=== PATIENT | male | born 1965 | race Caucasian/White ===

== ENCOUNTER 2016-05-18 12:06 | Emergency (ER) | payer BC, OTHER ==
--- NOTE | 2016-05-18 14:40 | REP ---
CT Head without contrast HISTORY: Trauma COMPARISON: 06/23/2014 There is no intraparenchymal hemorrhage, acute infarct, mass or midline shift. The ventricular system is normal in appearance. There is no extra cerebral collection. There is no fracture. The visualized sinuses are clear. IMPRESSION: There is no intracranial lesion. Signed by Pedro Villalta MD 05/18/2016 02:31 P
--- NOTE | 2016-05-18 15:32 | EDDOCDS ---
Nurse's Notes [facility] Name: Jose Price Age: 50 yrs Sex: Male : 1965 Arrival Date: 05/18/2016 Time: 12:06 Bed PR2 / Private MD: Nima Ruiz D; Abraham Hopson Diagnosis: Diplopia-due to trauma Presentation: 05/18 12:19 Presenting complaint: Patient states: hit head twice yesterday. pt denies LOC. Pt c/o dsf double vision. pt denies pain. Adult Sepsis Screening: The patient does not have new or worsening altered mentation. Patient's respiratory rate is less than 22. Systolic blood pressure is greater than 100. Patient has a qSOFA score of 0- Negative Sepsis Screen. Suicide/Homicide risk assessment- the patient denies having any suicidal and/or homicidal ideations and does not present with any other emotional, behavioral or mental health complaints. 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 Transition of care: patient was not received from another setting of care. 12:19 Acuity: WEI Level 4 dsf 12:19 Method Of Arrival: Walkin/Carried/Asstd dsf Triage Assessment: 12:22 General: Appears in no apparent distress, Behavior is appropriate for age, cooperative. dsf Pain: Denies pain. Pt Declines HIV testing. EENT: Reports double vision . Cardiovascular: No deficits noted. Respiratory: No deficits noted. Derm: Skin is pink. Historical: - Allergies: no known allergies; - Home Meds: 1. metoprolol tartrate 25 mg Oral tab 1 tab once daily (Last dose: 05/17/2016) 2. atorvastatin 10 mg oral tab 1 tab once daily (Last dose: 05/17/2016) 3. Aleve 220 mg Oral tab 2 tab as needed (Last dose: 05/18/2016 05:00) - PMHx: Hypertension; Hypercholesterolemia; - PSHx: Appendectomy; - Social history: Smoking status: Patient states was never smoker of tobacco. No barriers to communication noted, The patient speaks fluent Malay, Speaks appropriately for age. - Family history: Not pertinent. - : The pt / caregiver states he / she is not on anticoagulants. Home medication list is obtained from the patient. - Exposure Risk Screening:: None identified. Screenin:30 Screening information is obtained from the patient. Fall risk: No risks identified. kr3 Assistance ADL's: requires no assistance with activities of daily living. Abuse/DV Screen: The patient / caregiver reports he/she is: not in a situation that causes fear, pain or injury. Nutritional screening: No deficits noted. Advance Directives: Currently, there is no health care proxy. home support is adequate. Assessment: 13:39 Adult Sepsis Screening: The patient does not have new or worsening altered mentation. dsf Patient's respiratory rate is less than 22. Systolic blood pressure is greater than 100. Patient has a qSOFA score of 0- Negative Sepsis Screen. General: Appears in no apparent distress, Behavior is appropriate for age, cooperative. Pain: Denies pain. Neurological: Level of Consciousness is awake, alert. EENT: Reports double vision . Cardiovascular: Capillary refill < 3 seconds. Respiratory: Airway is patent Respiratory effort is even, unlabored, Respiratory pattern is regular, symmetrical. Derm: Skin is pink, warm & dry. 15:31 Reassessment: Patient appears in no apparent distress at this time. Pain: Location: kr3 right knee Pain currently is 3 out of 10 on a pain scale. Respiratory: Respiratory effort is even, unlabored. Derm: Skin is pink, warm & dry. Vital Signs: 12:08 BP 158 / 107 RA Supine (auto/reg); Pulse 78; Resp 18 S; Temp 96.0(O); Pulse Ox 98% on gr2 R/A; Weight 95.25 kg (R); Height 5 ft. 10 in. (177.80 cm) (R); Pain 2/10; 14:08 BP 166 / 101; Pulse 64; Resp 18; Temp 97.9(TE); Pulse Ox 99% ; Pain 2/10; rn1 15:30 BP 148 / 100 LA (man/); Pulse 82; Resp 16; Pulse Ox 96% on R/A; Pain 3/10; kr3 12:08 Body Mass Index 30.13 (95.25 kg, 177.80 cm) gr2 Vitals: 12:22 Log In Time: May 18, 2016 at 12:06. [facility] ED Course: 12:08 Patient visited by John Renee. dem1 12:08 Abraham Hopson MD is Private Physician. dem1 12:08 Patient moved to Waiting dem1 12:11 Patient moved to Pre RCE dem1 12:13 Nima Ruiz is Private Physician. gr2 12:15 Patient visited by Stormy Roper. gr2 12:20 Triage Initiated dsf 13:39 Patient moved to Triage 3 dsf 14:06 Owen Lee PA-C is PHCP. cc10 14:06 Oriana Lay MD is Attending Physician. cc10 14:08 Patient visited by Owen Lee PA-C. cc10 14:08 Patient visited by Owen Lee PA-C. cc10 14:17 Patient moved to TR1 dsf 14:19 Patient visited by Paradise Weiner,RN. dsf 14:50 CT Head Without Contrast Returned. EDMS 15:11 Patient moved to PR kr3 15:16 Patient visited by Sima Huynh,NOHELIA. kr3 15:24 Abraham Hopson MD is Referral Physician. cc10 15:31 The patient / caregiver is instructed regarding the plan of care and ED course. Patient kr3 has correct armband on for positive identification. 15:31 No IV's were initiated during this patient's visit. No procedures done that require kr3 assistance. Order Results: Radiology Order: CT Head Without Contrast Test: CT Head Without Contrast REASON FOR EXAMINATION: Trauma; CT Head without contrast; ; HISTORY: Trauma; ; COMPARISON: 06/23/2014; ; There is no intraparenchymal hemorrhage, acute infarct, mass or midline shift.; The ventricular system is normal in appearance. There is no extra cerebral; collection. There is no fracture. The visualized sinuses are clear.; ; IMPRESSION: There is no intracranial lesion.; ; ; ; ; Signed by; Pedro Villalta MD 05/18/2016 02:31 P; Outcome: 15:24 Discharge ordered by Provider. cc10 15:31 Discharge Assessment: patient administered narcotics - no. The following High Risk kr3 Discharge criteria are identified: None. Discharged to home ambulatory. Condition: stable. Discharge instructions given to patient, Instructed on discharge instructions, follow up and referral plans. Demonstrated understanding of instructions, Pt was receptive of discharge instructions/ teaching. CT Study completed. Property sent home with patient. 15:32 Patient left the ED. kr3 Signatures: Dispatcher [employer] EDMS LinoSima,NOHELIA RN kr3 Paradise Weiner RN RN dsf John Renee dem1 Stormy Roper gr2 Owen Lee PA-C PAMartín cc10 Shade Kong rn1 Corrections: (The following items were deleted from the chart) 12:15 12:08 BP 210 / 115 Supine Auto R Arm Regular; Pulse 93bpm; Resp 18bpm; Pulse Ox 99% RA; gr2 Temp 98.5F; 90.72 kg; Height 5 ft. 8 in.; BMI: 30.4; Pain 9/10; dem1 12:16 12:08 Log In Time: May 18, 2016 at 12:06 dem1 dem1 12:16 12:08 BP 202 / 106 Sitting Auto R Arm Large; dem1 dem1 MTDD
--- NOTE | 2016-05-18 15:32 | EDDOCDS ---
Physician Documentation [facility] Name: Jose Price Age: 50 yrs Sex: Male : 1965 Arrival Date: 05/18/2016 Time: 12:06 Bed PR Private MD: Nima Ruiz D; Abraham Hopson Disposition: 05/18/16 15:24 Discharged to Home/Self Care. Impression: Diplopia - due to trauma. - Condition is Stable. - Discharge Instructions: Diplopia. - Medication Reconciliation form. - Follow up: Emergency Department; When: As needed; Reason: Worsening of conditions. Follow up: Abraham Hopson MD; When: Call to arrange an appointment; Reason: Wound/Symptom Recheck, Recheck today's complaints, Continuance of care. - Problem is new. - Symptoms are unchanged. Historical: - Allergies: no known allergies; - Home Meds: 1. metoprolol tartrate 25 mg Oral tab 1 tab once daily (Last dose: 05/17/2016) 2. atorvastatin 10 mg oral tab 1 tab once daily (Last dose: 05/17/2016) 3. Aleve 220 mg Oral tab 2 tab as needed (Last dose: 05/18/2016 05:00) - PMHx: Hypertension; Hypercholesterolemia; - PSHx: Appendectomy; - Social history: Smoking status: Patient states was never smoker of tobacco. No barriers to communication noted, The patient speaks fluent Tunisian, Speaks appropriately for age. - Family history: Not pertinent. - : The pt / caregiver states he / she is not on anticoagulants. Home medication list is obtained from the patient. - Exposure Risk Screening:: None identified. Vital Signs: 05/18 12:08 BP 158 / 107 RA Supine (auto/reg); Pulse 78; Resp 18 S; Temp 96.0(O); Pulse Ox 98% on gr2 R/A; Weight 95.25 kg / 209.99 lbs (R); Height 5 ft. 10 in. (177.80 cm) (R); Pain 2/10; 14:08 BP 166 / 101; Pulse 64; Resp 18; Temp 97.9(TE); Pulse Ox 99% ; Pain 2/10; rn1 15:30 BP 148 / 100 LA (man/); Pulse 82; Resp 16; Pulse Ox 96% on R/A; Pain 3/10; kr3 12:08 Body Mass Index 30.13 (95.25 kg, 177.80 cm) gr2 MDM: 14:18 CT Head Without Contrast Ordered. EDMS Signatures: Dispatcher [employer] EDMS Sima Huynh,RN RN kr3 Paradise WeinerRN RN gerardf Owen Lee, PAMartín PAGregoryC cc10 MTDD
--- NOTE | 2016-05-20 16:33 | EDDOCDS ---
Physician Documentation [facility] Name: Jose Price Age: 50 yrs Sex: Male : 1965 Arrival Date: 05/18/2016 Time: 12:06 Bed PR Private MD: Nima Ruiz D; Abraham Hopson Disposition: 05/18/16 15:24 Discharged to Home/Self Care. Impression: Diplopia - due to trauma. - Condition is Stable. - Discharge Instructions: Diplopia. - Medication Reconciliation form. - Follow up: Emergency Department; When: As needed; Reason: Worsening of conditions. Follow up: Abraham Hopson MD; When: Call to arrange an appointment; Reason: Wound/Symptom Recheck, Recheck today's complaints, Continuance of care. - Problem is new. - Symptoms are unchanged. Historical: - Allergies: no known allergies; - Home Meds: 1. metoprolol tartrate 25 mg Oral tab 1 tab once daily (Last dose: 05/17/2016) 2. atorvastatin 10 mg oral tab 1 tab once daily (Last dose: 05/17/2016) 3. Aleve 220 mg Oral tab 2 tab as needed (Last dose: 05/18/2016 05:00) - PMHx: Hypertension; Hypercholesterolemia; - PSHx: Appendectomy; - Social history: Smoking status: Patient states was never smoker of tobacco. No barriers to communication noted, The patient speaks fluent South Sudanese, Speaks appropriately for age. - Family history: Not pertinent. - : The pt / caregiver states he / she is not on anticoagulants. Home medication list is obtained from the patient. - Exposure Risk Screening:: None identified. Vital Signs: 05/18 12:08 BP 158 / 107 RA Supine (auto/reg); Pulse 78; Resp 18 S; Temp 96.0(O); Pulse Ox 98% on gr2 R/A; Weight 95.25 kg / 209.99 lbs (R); Height 5 ft. 10 in. (177.80 cm) (R); Pain 2/10; 14:08 BP 166 / 101; Pulse 64; Resp 18; Temp 97.9(TE); Pulse Ox 99% ; Pain 2/10; rn1 15:30 BP 148 / 100 LA (man/); Pulse 82; Resp 16; Pulse Ox 96% on R/A; Pain 3/10; kr3 12:08 Body Mass Index 30.13 (95.25 kg, 177.80 cm) gr2 MDM: 14:18 CT Head Without Contrast Ordered. EDMS 16:08 [facility] Payment Agreement was scanned into [employer] and attached to record. jp5 16:08 Financial registration complete. jp5 05/19 06:52 T-Sheet-- Draft Copy was scanned into [employer] and attached to record. gb Signatures: Dispatcher [employer] EDMS Mely Diaz, Reg Reg gb Sima Huynh,RN RN kr3 Paradise Weiner,RN RN gerardf Owen Lee, PA-C PA-C cc10 Charu Trinh jp5 The chart was reviewed and I authenticate all verbal orders and agree with the evaluation and treatment provided.Attachments: 05/18 16:08 [facility] Payment Agreement jp5 05/19 06:52 T-Sheet-- Draft Copy gb Chart Complete MTDD
--- NOTE | 2016-05-20 16:33 | EDDOCDS ---
Nurse's Notes [facility] Name: Jose Price Age: 50 yrs Sex: Male : 1965 Arrival Date: 05/18/2016 Time: 12:06 Bed PR2 / Private MD: Nima Ruiz D; Abraham Hopson Diagnosis: Diplopia-due to trauma Presentation: 05/18 12:19 Presenting complaint: Patient states: hit head twice yesterday. pt denies LOC. Pt c/o dsf double vision. pt denies pain. Adult Sepsis Screening: The patient does not have new or worsening altered mentation. Patient's respiratory rate is less than 22. Systolic blood pressure is greater than 100. Patient has a qSOFA score of 0- Negative Sepsis Screen. Suicide/Homicide risk assessment- the patient denies having any suicidal and/or homicidal ideations and does not present with any other emotional, behavioral or mental health complaints. 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 Transition of care: patient was not received from another setting of care. 12:19 Acuity: WEI Level 4 dsf 12:19 Method Of Arrival: Walkin/Carried/Asstd dsf Triage Assessment: 12:22 General: Appears in no apparent distress, Behavior is appropriate for age, cooperative. dsf Pain: Denies pain. Pt Declines HIV testing. EENT: Reports double vision . Cardiovascular: No deficits noted. Respiratory: No deficits noted. Derm: Skin is pink. Historical: - Allergies: no known allergies; - Home Meds: 1. metoprolol tartrate 25 mg Oral tab 1 tab once daily (Last dose: 05/17/2016) 2. atorvastatin 10 mg oral tab 1 tab once daily (Last dose: 05/17/2016) 3. Aleve 220 mg Oral tab 2 tab as needed (Last dose: 05/18/2016 05:00) - PMHx: Hypertension; Hypercholesterolemia; - PSHx: Appendectomy; - Social history: Smoking status: Patient states was never smoker of tobacco. No barriers to communication noted, The patient speaks fluent Occitan, Speaks appropriately for age. - Family history: Not pertinent. - : The pt / caregiver states he / she is not on anticoagulants. Home medication list is obtained from the patient. - Exposure Risk Screening:: None identified. Screenin:30 Screening information is obtained from the patient. Fall risk: No risks identified. kr3 Assistance ADL's: requires no assistance with activities of daily living. Abuse/DV Screen: The patient / caregiver reports he/she is: not in a situation that causes fear, pain or injury. Nutritional screening: No deficits noted. Advance Directives: Currently, there is no health care proxy. home support is adequate. Assessment: 13:39 Adult Sepsis Screening: The patient does not have new or worsening altered mentation. dsf Patient's respiratory rate is less than 22. Systolic blood pressure is greater than 100. Patient has a qSOFA score of 0- Negative Sepsis Screen. General: Appears in no apparent distress, Behavior is appropriate for age, cooperative. Pain: Denies pain. Neurological: Level of Consciousness is awake, alert. EENT: Reports double vision . Cardiovascular: Capillary refill < 3 seconds. Respiratory: Airway is patent Respiratory effort is even, unlabored, Respiratory pattern is regular, symmetrical. Derm: Skin is pink, warm & dry. 15:31 Reassessment: Patient appears in no apparent distress at this time. Pain: Location: kr3 right knee Pain currently is 3 out of 10 on a pain scale. Respiratory: Respiratory effort is even, unlabored. Derm: Skin is pink, warm & dry. Vital Signs: 12:08 BP 158 / 107 RA Supine (auto/reg); Pulse 78; Resp 18 S; Temp 96.0(O); Pulse Ox 98% on gr2 R/A; Weight 95.25 kg (R); Height 5 ft. 10 in. (177.80 cm) (R); Pain 2/10; 14:08 BP 166 / 101; Pulse 64; Resp 18; Temp 97.9(TE); Pulse Ox 99% ; Pain 2/10; rn1 15:30 BP 148 / 100 LA (man/); Pulse 82; Resp 16; Pulse Ox 96% on R/A; Pain 3/10; kr3 12:08 Body Mass Index 30.13 (95.25 kg, 177.80 cm) gr2 Vitals: 12:22 Log In Time: May 18, 2016 at 12:06. [facility] ED Course: 12:08 Patient visited by John Renee. dem1 12:08 Abraham Hopson MD is Private Physician. dem1 12:08 Patient moved to Waiting dem1 12:11 Patient moved to Pre RCE dem1 12:13 Nima Ruiz is Private Physician. gr2 12:15 Patient visited by Stormy Roper. gr2 12:20 Triage Initiated dsf 13:39 Patient moved to Triage 3 dsf 14:06 Owen Lee PA-C is PHCP. cc10 14:06 Oriana Lay MD is Attending Physician. cc10 14:08 Patient visited by Owen Lee PA-C. cc10 14:08 Patient visited by Owen Lee PA-C. cc10 14:17 Patient moved to TR1 dsf 14:19 Patient visited by Paradise Weiner,RN. dsf 14:50 CT Head Without Contrast Returned. EDMS 15:11 Patient moved to PR2 / 26 kr3 15:16 Patient visited by Sima Huynh,NOHELIA. kr3 15:24 Abraham Hopson MD is Referral Physician. cc10 15:31 The patient / caregiver is instructed regarding the plan of care and ED course. Patient kr3 has correct armband on for positive identification. 15:31 No IV's were initiated during this patient's visit. No procedures done that require kr3 assistance. 16:08 [facility] Payment Agreement was scanned into [employer] and attached to record. jp5 05/19 06:52 T-Sheet-- Draft Copy was scanned into [employer] and attached to record. gb Order Results: Radiology Order: CT Head Without Contrast Test: CT Head Without Contrast REASON FOR EXAMINATION: Trauma; CT Head without contrast; ; HISTORY: Trauma; ; COMPARISON: 06/23/2014; ; There is no intraparenchymal hemorrhage, acute infarct, mass or midline shift.; The ventricular system is normal in appearance. There is no extra cerebral; collection. There is no fracture. The visualized sinuses are clear.; ; IMPRESSION: There is no intracranial lesion.; ; ; ; ; Signed by; Pedro Villalta MD 05/18/2016 02:31 P; Outcome: 05/18 15:24 Discharge ordered by Provider. cc10 15:31 Discharge Assessment: patient administered narcotics - no. The following High Risk kr3 Discharge criteria are identified: None. Discharged to home ambulatory. Condition: stable. Discharge instructions given to patient, Instructed on discharge instructions, follow up and referral plans. Demonstrated understanding of instructions, Pt was receptive of discharge instructions/ teaching. CT Study completed. Property sent home with patient. 15:32 Patient left the ED. kr3 Signatures: Dispatcher [employer] EDMS Mely Diaz, Reg Reg Sima Aguero,RN RN kr3 Paradise WeinreRN RN f John Renee dem1 Stormy Roper gr2 Owen Lee PA-C PA-C cc10 Shade Kong rn1 Charu Trinh jp5 Corrections: (The following items were deleted from the chart) 12:15 12:08 BP 210 / 115 Supine Auto R Arm Regular; Pulse 93bpm; Resp 18bpm; Pulse Ox 99% RA; gr2 Temp 98.5F; 90.72 kg; Height 5 ft. 8 in.; BMI: 30.4; Pain 9/10; dem1 12:16 12:08 Log In Time: May 18, 2016 at 12:06 [facility] 12:16 12:08 BP 202 / 106 Sitting Auto R Arm Large; dem1 dem1 Chart Complete [facility]
--- NOTE | 2016-05-20 16:33 | EDDOCDS ---
Physician Documentation [facility] Name: Jose Price Age: 50 yrs Sex: Male : 1965 Arrival Date: 05/18/2016 Time: 12:06 Bed PR Private MD: Nima Ruiz D; Abraham Hopson Disposition: 05/18/16 15:24 Discharged to Home/Self Care. Impression: Diplopia - due to trauma. - Condition is Stable. - Discharge Instructions: Diplopia. - Medication Reconciliation form. - Follow up: Emergency Department; When: As needed; Reason: Worsening of conditions. Follow up: Abraham Hopson MD; When: Call to arrange an appointment; Reason: Wound/Symptom Recheck, Recheck today's complaints, Continuance of care. - Problem is new. - Symptoms are unchanged. Historical: - Allergies: no known allergies; - Home Meds: 1. metoprolol tartrate 25 mg Oral tab 1 tab once daily (Last dose: 05/17/2016) 2. atorvastatin 10 mg oral tab 1 tab once daily (Last dose: 05/17/2016) 3. Aleve 220 mg Oral tab 2 tab as needed (Last dose: 05/18/2016 05:00) - PMHx: Hypertension; Hypercholesterolemia; - PSHx: Appendectomy; - Social history: Smoking status: Patient states was never smoker of tobacco. No barriers to communication noted, The patient speaks fluent Israeli, Speaks appropriately for age. - Family history: Not pertinent. - : The pt / caregiver states he / she is not on anticoagulants. Home medication list is obtained from the patient. - Exposure Risk Screening:: None identified. Vital Signs: 05/18 12:08 BP 158 / 107 RA Supine (auto/reg); Pulse 78; Resp 18 S; Temp 96.0(O); Pulse Ox 98% on gr2 R/A; Weight 95.25 kg / 209.99 lbs (R); Height 5 ft. 10 in. (177.80 cm) (R); Pain 2/10; 14:08 BP 166 / 101; Pulse 64; Resp 18; Temp 97.9(TE); Pulse Ox 99% ; Pain 2/10; rn1 15:30 BP 148 / 100 LA (man/); Pulse 82; Resp 16; Pulse Ox 96% on R/A; Pain 3/10; kr3 12:08 Body Mass Index 30.13 (95.25 kg, 177.80 cm) gr2 MDM: 14:18 CT Head Without Contrast Ordered. EDMS 16:08 [facility] Payment Agreement was scanned into [employer] and attached to record. jp5 16:08 Financial registration complete. jp5 05/19 06:52 T-Sheet-- Draft Copy was scanned into [employer] and attached to record. gb Signatures: Dispatcher [employer] EDMS Mely Diaz, Reg Reg gb Sima Huynh,RN RN kr3 Paradise Weiner,RN RN gerardf Owen Lee, PA-C PA-C cc10 Charu Trinh jp5 The chart was reviewed and I authenticate all verbal orders and agree with the evaluation and treatment provided.Attachments: 05/18 16:08 [facility] Payment Agreement jp5 05/19 06:52 T-Sheet-- Draft Copy gb Chart Complete MTDD
== END 2016-05-18 15:32 | disposition home or self-care (01) ==
LOC: M ED 12:06
DX: H53.2 Diplopia (principal); I10 Essential (primary) hypertension; E03.9 Hypothyroidism, unspecified; Z90.89 Acquired absence of other organs; Z79.899 Other long term (current) drug therapy

== ENCOUNTER → 2017-03-23 | Outpatient (REF) | payer OTHER ==
[2017-03-23 11:48] LABS: ANION GAP 7 MEQ/L (8-16); BLOOD UREA NITROGEN 17 MG/DL (7-18); CALCIUM LEVEL 8.9 MG/DL (8.5-10.1); CARBON DIOXIDE LEVEL 31 MEQ/L (21-32); CHLORIDE LEVEL 105 MEQ/L (98-107); CHOLESTEROL LEVEL 243 MG/DL (<200); CREATININE FOR GFR 1.02 MG/DL (0.70-1.30); GLOMERULAR FILTRATION RATE > 60.0 (>60); GLUCOSE, FASTING 91 MG/DL (70-105); POTASSIUM SERUM 4.4 MEQ/L (3.5-5.1); SODIUM LEVEL 143 MEQ/L (136-145); TRIGLYCERIDES LEVEL 617 MG/DL (<150); URIC ACID 6.3 MG/DL (3.5-7.2)
== END ==
LOC: M SFHCCLAY 08:03
PROVIDERS: ATTEND Family Medicine
DX: I10 Essential (primary) hypertension (principal); I27.21 Secondary pulmonary arterial hypertension

== ENCOUNTER → 2018-04-18 | Outpatient (REF) | payer OTHER ==
[2018-04-18 12:06] LABS: ALT/SGPT 69 U/L (12-78); ANION GAP 6 MEQ/L (8-16); BLOOD UREA NITROGEN 15 MG/DL (7-18); CARBON DIOXIDE LEVEL 31 MEQ/L (21-32); CHLORIDE LEVEL 104 MEQ/L (98-107); CHOLESTEROL LEVEL 197 MG/DL (<200); CHOLESTEROL RISK RATIO 6.354 (<5); CREATININE FOR GFR 1.15 MG/DL (0.70-1.30); GLOMERULAR FILTRATION RATE > 60.0 (>56); GLUCOSE, FASTING 99 MG/DL (70-100); HDL CHOLESTEROL 31 MG/DL (>40); NON-HDL-C 166 MG/DL; POTASSIUM SERUM 4.4 MEQ/L (3.5-5.1); SODIUM LEVEL 141 MEQ/L (136-145); TRIGLYCERIDES LEVEL 530 MG/DL (<150); URIC ACID 5.2 MG/DL (3.5-7.2)
== END ==
LOC: M SFHCCLAY 06:51
DX: I10 Essential (primary) hypertension (principal); E78.2 Mixed hyperlipidemia; I27.21 Secondary pulmonary arterial hypertension
CPT/HCPCS: 84460

== ENCOUNTER → 2018-07-29 | Outpatient (CLI) | payer OTHER ==
[~2018-07-29] MED LIST: ISOVUE-370 76% 125ML VIAL (Q9967 PER ML) As Ordered ONE
--- NOTE | 2018-07-29 16:59 | REP ---
CT neck with contrast History: Localized swelling Contrast: Isovue 370 75 ml There is minimal thickening of the left lateral wall of the hypopharynx. There is mass effect with effacement of the left valleculae and minimal mass effect on the hypopharynx. There is no extension into the oropharynx or larynx. Nasopharynx, larynx and subglottic trachea are normal in appearance. The salivary and thyroid glands are normal in size and density. Small lymph nodes less than 1 cm in size are present in the internal jugular chains, posterior triangles and submandibular areas. Degenerative changes present in the cervical spine. Minimal mucosal thickening is present in the right mastoid air cells. The left mastoid air cells and visualized sinuses are clear. Impression: There is thickening of the left lateral wall of the hypopharynx with effacement of the vallecula and minimal mass effect on the hypopharynx. This is suspicious for a neoplasm. Electronically Signed by Pedro Villalta MD 07/29/2018 04:51 P
== END ==
LOC: M RAD 15:56
PROVIDERS: ATTEND Otolaryngology
DX: J39.2 Other diseases of pharynx (principal)
CPT/HCPCS: 70491; Q9967

== ENCOUNTER → 2018-08-21 | Outpatient (REF) | payer OTHER ==
[~2018-08-21] MED LIST changes: +CLAR10CA3 PO; +FEBU40TA PO; -ISOVUE-370 76% 125ML VIAL (Q9967 PER ML) As Ordered ONE; +METO1TAB32 PO; +VALS1TAB49 PO
[2018-08-22 12:20] LABS: HEMATOCRIT 45.9 % (42.0-52.0); HEMOGLOBIN 15.8 g/dl (13.5-17.5); MEAN CORPUSCULAR HEMOGLOBIN 31.2 pg (27.0-33.0); MEAN CORPUSCULAR HGB CONC 34.4 g/dl (32.0-36.5); MEAN CORPUSCULAR VOLUME 90.5 fl (80.0-96.0); PLATELET COUNT, AUTOMATED 211 10^3/uL (150-450); RED BLOOD COUNT 5.07 10^6/uL (4.30-6.10); WHITE BLOOD COUNT 5.2 10^3/uL (4.0-10.0)
[2018-08-22 13:10] LABS: BLOOD UREA NITROGEN 13 MG/DL (7-18); CALCIUM LEVEL 9.1 MG/DL (8.5-10.1); CARBON DIOXIDE LEVEL 30 MEQ/L (21-32); CHLORIDE LEVEL 108 MEQ/L (98-107); CREATININE FOR GFR 1.15 MG/DL (0.70-1.30); GLOMERULAR FILTRATION RATE > 60.0 (>56); GLUCOSE, FASTING 101 MG/DL (70-100); POTASSIUM SERUM 5.4 MEQ/L (3.5-5.1); SODIUM LEVEL 142 MEQ/L (136-145)
== END ==
LOC: M SFHCCLAY 15:25
PROVIDERS: ATTEND Family Medicine
DX: J35.1 Hypertrophy of tonsils (principal); J39.2 Other diseases of pharynx

== ENCOUNTER → 2018-08-27 | Outpatient (CLI) | payer OTHER | LOC: M LAB 12:14 | PROVIDERS: ATTEND Family Medicine | DX: E87.5 Hyperkalemia (principal) ==

== ENCOUNTER 2018-08-28 10:08 | Day surgery (SDC) | payer OTHER ==
[~2018-08-28] VITALS: Ht 177.8 cm; Wt 101.6 kg
[2018-08-28] MEDS ORDERED: METHYLENE BLUE 0.5% (5MG/ML) 10 ML AMP (PROVAYBLUE)(Q9968 PER 1MG) As Ordered ONE (10:46)
[2018-08-28] MEDS ORDERED: LIDOCAINE W/EPINEPHRINE 1% 20ML VIAL As Ordered ONE (10:46)
[2018-08-28] MEDS ORDERED: OXYMETAZOLINE NASAL SPRAY (AFRIN) As Ordered ONE (10:46)
[2018-08-28 10:58] LABS: BLOOD UREA NITROGEN 17 MG/DL (7-18); CALCIUM LEVEL 9.1 MG/DL (8.5-10.1); CARBON DIOXIDE LEVEL 28 MEQ/L (21-32); CHLORIDE LEVEL 107 MEQ/L (98-107); CREATININE FOR GFR 1.16 MG/DL (0.70-1.30); GLOMERULAR FILTRATION RATE > 60.0 (>56); GLUCOSE, FASTING 94 MG/DL (70-100); POTASSIUM SERUM 4.3 MEQ/L (3.5-5.1); SODIUM LEVEL 139 MEQ/L (136-145)
[2018-08-28] MEDS ORDERED: ROCURONIUM BROMIDE 50 MG/5 ML VIAL As Ordered ONE (11:33)
[2018-08-28] MEDS ORDERED: ONDANSETRON 4MG/2ML VIAL (J2405) As Ordered ONE (11:33)
[2018-08-28] MEDS ORDERED: MIDAZOLAM INJ 2 MG/2 ML VIAL (J2250) As Ordered ONE (11:33)
[2018-08-28] MEDS ORDERED: fentaNYL 100 MCG/2 ML INJECTION (J3010) As Ordered ONE (11:33)
[2018-08-28] MEDS ORDERED: PROPOFOL 200 MG/20 ML VIAL As Ordered ONE (11:33)
[2018-08-28] MEDS ORDERED: dexameTHASONE 4 MG/ML 1ML VIAL (J1100) As Ordered ONE (11:33)
[2018-08-28] MEDS ORDERED: LIDOCAINE 2% INJ 100 MG/5 ML SDV (FOR ANES.) As Ordered ONE (11:33)
[2018-08-28] MEDS ORDERED: GLYCOPYRROLATE INJ 0.2 MG/ML 2 ML VIAL As Ordered ONE (11:34)
[2018-08-28] MEDS ORDERED: SUGAMMADEX SODIUM 500 MG/5 ML VIAL (BRIDION) As Ordered ONE (11:39)
[2018-08-28] MEDS ORDERED: NORCO, ANEXSIA 5/325MG TABLET (HYDROcodone/ACETAMINOPHEN) As Ordered ONE (12:12)
[2018-08-28] MEDS ORDERED: NORCO, ANEXSIA 5/325MG TABLET (HYDROcodone/ACETAMINOPHEN) PO PRN (12:30)
[2018-08-28] MEDS ORDERED: fentaNYL 100 MCG/2 ML INJECTION (J3010) IV PRN (12:30)
[2018-08-28] MEDS ORDERED: LR 1,000 ML IV SCH (12:30)
[2018-08-28] MEDS ORDERED: ONDANSETRON 4MG/2ML VIAL (J2405) IV PRN (12:30)
[2018-08-28 13:17] VITALS: BP 125/88
--- NOTE | 2018-08-29 06:23 | RO ---
DATE OF PROCEDURE: 08/28/2018 PREPROCEDURE DIAGNOSIS: Swelling of the left lateral pharynx. POSTPROCEDURE DIAGNOSIS: Swelling of the left lateral pharynx. PROCEDURE: Direct suspension micro laryngoscopy with biopsy of the left lateral pharyngeal wall and right superior tonsil. SURGEON: Dr. Kavon Lucas. GENERAL ENGINEER: ANESTHESIA: General. CLINICAL PREAMBLE: This is a 53-year-old man who presented to the office with a history of an unusual appearance of the right superior tonsil. CT scan of the neck revealed evidence of swelling of the left lateral pharyngeal wall at the level of the basal tongue concerning for possible neoplastic process. Management options including surgery listed have been discussed. The patient understood and consented to the procedure. DESCRIPTION OF PROCEDURE: The patient was identified in pre-holding and brought to the operating room in stable condition. In supine position on the operating room table, the patient received general anesthesia followed by orotracheal intubation without incidence. The patient was prepped and draped in the usual fashion for the procedure. The oral cavity, oral tongue, lateral pharyngeal wall, posterior pharyngeal wall were palpated and found to be free of discrete nodule. The upper dentition was then protected using the tooth guard. Using the Dedo-Pilling laryngoscope, visualization of the mucosa of the oral cavity, oral tongue, base of tongue, lateral pharyngeal wall, posterior pharyngeal wall, tonsils, supraglottis, aryepiglottic fold, piriform sinuses, postcricoid area and the glottis were inspected and found to be free of ulceration. Prominent lymphoid tissue was noted over the left lateral pharyngeal wall area near the base of tongue. The Dedo-Pilling laryngoscope was suspended and the biopsy was obtained from the left lateral pharyngeal wall area. Inspection of the superior aspect of the right tonsil was carried out. Biopsies were also obtained from the right superior tonsil area where patient was noted to have some unusual appearance. Hemostasis was achieved. No complication was encountered. Estimated blood loss was less than 1 mL. General anesthesia was reversed and patient was extubated and brought to the recovery room in stable condition.
== END 2018-08-28 14:10 | disposition home or self-care (01) ==
LOC: M SDC 10:08
PROVIDERS: ATTEND Otolaryngology
DX: J39.2 Other diseases of pharynx (principal); I10 Essential (primary) hypertension; I49.9 Cardiac arrhythmia, unspecified; E78.00 Pure hypercholesterolemia, unspecified; E80.4 Gilbert syndrome; R06.83 Snoring; K21.9 Gastro-esophageal reflux disease without esophagitis; Z91.09 Other allergy status, other than to drugs and biological substances; Z79.899 Other long term (current) drug therapy
CPT/HCPCS: 31535; 36415; 80048; 88305; J1100; J2250; J2405; J3010; Q9968

== ENCOUNTER → 2019-01-23 | Outpatient (CLI) | payer OTHER ==
[~2019-01-23] MED LIST changes: -FEBU40TA PO; +FEBU40TA4 PO; +ISOVUE-370 76% 100ML VIAL (Q9967) As Ordered ONE
[2019-01-23 07:59] LABS: HEMATOCRIT 45.8 % (42.0-52.0); MEAN CORPUSCULAR HEMOGLOBIN 31.2 pg (27.0-33.0); MEAN CORPUSCULAR HGB CONC 34.9 g/dl (32.0-36.5); MEAN CORPUSCULAR VOLUME 89.3 fl (80.0-96.0); PLATELET COUNT, AUTOMATED 173 10^3/uL (150-450); RED BLOOD COUNT 5.13 10^6/uL (4.30-6.10); WHITE BLOOD COUNT 4.9 10^3/uL (4.0-10.0)
[2019-01-23 08:33] LABS: BLOOD UREA NITROGEN 16 MG/DL (7-18); CALCIUM LEVEL 9.1 MG/DL (8.5-10.1); CARBON DIOXIDE LEVEL 30 MEQ/L (21-32); CHLORIDE LEVEL 107 MEQ/L (98-107); CREATININE FOR GFR 1.13 MG/DL (0.70-1.30); GLOMERULAR FILTRATION RATE > 60.0 (>56); GLUCOSE, FASTING 102 MG/DL (70-100); POTASSIUM SERUM 4.2 MEQ/L (3.5-5.1); SODIUM LEVEL 141 MEQ/L (136-145); URIC ACID 5.1 MG/DL (3.5-7.2)
--- NOTE | 2019-01-23 12:28 | REP ---
CT of the soft tissue neck with contrast Indication: Hypopharyngeal mass. Comparison: CT neck of 07/29/2018. Technique: Axial CT of the soft tissue neck was performed following the uneventful intravenous administration of 75 ml Isovue 370. Normal sagittal coronal soft tissue reformatted images were provided. Findings: There is streak artifact related to dental amalgam which partially obscures the oral cavity and oropharynx. Within this limitation, the oral pharynx, nasopharynx and nasal passages are clear within normal limits. There is mild thickening of the left base of the tongue, similar to prior. There is similar thickening of the left lateral wall of the hypopharynx with partial effacement of the left vallecular space, improved. 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 The larynx is unremarkable. The thyroid gland, submandibular glands and parotid glands are normal. There are similar small cervical lymph nodes bilaterally. There is no cervical lymphadenopathy. The imaged portion of the brain parenchyma is within normal limits. Note is made of intracranial vascular calcification. The visualized paranasal sinuses and mastoid air cells are clear. The upper airway is patent. There are ground-glass opacities within the lung apices which are nonspecific but similar to prior. The cervical vessels are intact. There is cervical spondylosis. Impression: There is streak artifact related to dental amalgam is partially obscures the oral cavity and oropharynx. Within this limitation, there is mild thickening of the left-sided base of the tongue, similar to prior. There is similar thickening of the left lateral wall of the hypopharynx. Effacement of left vallecular space is improved. No cervical lymphadenopathy. Electronically Signed by Grisel Ron MD 01/23/2019 12:21 P
== END ==
LOC: M LAB 07:36
PROVIDERS: ATTEND Family Medicine
DX: J39.2 Other diseases of pharynx (principal); I10 Essential (primary) hypertension; M10.9 Gout, unspecified
CPT/HCPCS: 36415; 70491; 80048; 84550; 85027; Q9967

== ENCOUNTER → 2020-01-02 | Outpatient (CLI) | payer OTHER ==
[~2020-01-02] MED LIST changes: -ISOVUE-370 76% 100ML VIAL (Q9967) As Ordered ONE; +ISOVUE-370 76% 100ML VIAL As Ordered ONE; -VALS1TAB49 PO; +VALS40TA9 PO
--- NOTE | 2020-01-02 11:49 | REPVR ---
PROCEDURE INFORMATION: Exam: CT Neck With Contrast Exam date and time: 01/02/2020 10:37 AM Age: 54 years old Clinical indication: Mass, lump, or swelling in neck; Patient HX: Bb placed at mass/lump; Additional info: R22.1 localized swelling mass/lump TECHNIQUE: Imaging protocol: Computed tomography images of the neck with intravenous contrast. Radiation optimization: All CT scans at this facility use at least one of these dose optimization techniques: automated exposure control; mA and/or kV adjustment per patient size (includes targeted exams where dose is matched to clinical indication); or iterative reconstruction. Contrast material: ISOVUE 370; Contrast volume: 75 ml; Contrast route: INTRAVENOUS (IV); COMPARISON: CT Neck with contrast 01/23/2019 8:06 AM FINDINGS: Nasopharynx: Unremarkable. Oropharynx: Unremarkable. No significant tonsillar enlargement. Hypopharynx: Unremarkable. Larynx: Unremarkable. Normal epiglottis. Retropharyngeal space: Unremarkable. Submandibular/Parotid glands: Normal. Glands are normal in size. Thyroid: Normal. No enlarged or calcified nodules. Lymph nodes: Unremarkable. No lymphadenopathy. Trachea: Visualized trachea is unremarkable. Lungs: Unremarkable as visualized. Bones/joints: Unremarkable. No acute fracture. Soft tissues: There is a radiopaque density within the left pre mandibular soft tissues, compatible with foreign body. IMPRESSION: No acute soft tissue abnormality. Note that no localizing history was provided or marker placed. Electronically signed by: Shagufta Garcia On 01/02/2020 11:49:51 AM
== END ==
LOC: M RAD 10:07
PROVIDERS: ATTEND Otolaryngology
DX: R22.1 Localized swelling, mass and lump, neck (principal)
CPT/HCPCS: 70491; Q9967

== ENCOUNTER → 2020-02-23 | Outpatient (CLI) | payer OTHER ==
[~2020-02-23] MED LIST changes: -ISOVUE-370 76% 100ML VIAL As Ordered ONE
--- NOTE | 2020-02-26 10:42 | REP ---
BILATERAL PARALUMBAR/PARASPINAL ULTRASOUND HISTORY: Mass at the level of the right sacroiliac (SI) joint. FINDINGS: Scanning in the area of the palpable area of the right lower back demonstrates a 3.6 x 1.7 x 1.6 cm hypoechoic area in the subcutaneous fat, question lipoma. There is a small sliver-like quantity of fluid deep to the subcutaneous fatty tissue. Contralateral scanning shows a larger area of isoechoic subcutaneous fatty tissue, which is somewhat mobile with probe pressure. There is no evidence of paralumbar hernia. IMPRESSION: Findings suggestive of subcutaneous lipoma in the paralumbar regions bilaterally. This could be characterized further with CT or MRI scanning. Otherwise negative. MTDD
== END ==
LOC: M RAD 10:54
PROVIDERS: ATTEND Family Medicine
DX: R22.2 Localized swelling, mass and lump, trunk (principal)

== ENCOUNTER → 2020-04-07 | Outpatient (CLI) | payer OTHER ==
[~2020-04-07] MED LIST changes: +PROHANCE 279.3MG/ML 15ML VIAL As Ordered ONE; +PROHANCE 279.3MG/ML 5ML VIAL As Ordered ONE
--- NOTE | 2020-04-07 14:15 | REP ---
INDICATION: SOFT TISSUE LESION OF PELVIC REGION. COMPARISON: Ultrasound 02/23/2020. TECHNIQUE: Multiple sequences obtained in the axial, coronal and sagittal planes prior to and following the intravenous administration of 20 mL ProHance. FINDINGS: In the soft tissues of the lower back from just above the lumbosacral junction extending inferiorly there is no evidence of a discrete soft tissue mass. There is mild ill-defined high signal on T2 weighted images in the soft tissues along the surface of the right gluteus lakhwinder muscle superiorly and medially. The this extends toward the skin to a mild extent. There is associated ill-defined enhancement of these soft tissues. No enhancing or suspicious mass is seen on either side of the lower back soft tissues. The remaining visualized soft tissue structures demonstrate no abnormal signal. The osseous structures of the pelvis demonstrate normal bone marrow signal with no abnormal enhancement. Within the pelvis no adenopathy, mass or free fluid is seen. There is sigmoid diverticulosis noted. I see no other significant findings. IMPRESSION: No discrete soft tissue mass seen in the lower back bilaterally. At the superomedial aspect of the right gluteus lakhwinder muscle there is mild edema and ill-defined enhancement along the surface of the muscle extending to a mild extent into the adjacent subcutaneous soft tissues. This is a nonspecific finding. This could be due to some type of inflammation, contusion or superficial muscle strain. No suspicious enhancing mass. Underlying bones are normal. Incidental note is made of sigmoid diverticulosis. <Electronically signed by Joey Borrego > 04/07/20 [id number]
== END ==
LOC: M RAD 12:11
PROVIDERS: ATTEND Family Medicine
DX: M79.89 Other specified soft tissue disorders (principal)
CPT/HCPCS: 72197; A9576

== ENCOUNTER → 2020-05-28 | Outpatient (CLI) | payer OTHER ==
[~2020-05-28] MED LIST changes: -PROHANCE 279.3MG/ML 15ML VIAL As Ordered ONE; -PROHANCE 279.3MG/ML 5ML VIAL As Ordered ONE
== END ==
LOC: M LABSMTC 12:49
PROVIDERS: ATTEND Pediatrics
DX: Z20.822 Contact with and (suspected) exposure to COVID-19 (principal)

== ENCOUNTER 2020-07-26 10:25 | Emergency (ER) | payer OTHER ==
[~2020-07-26] VITALS: Ht 177.8 cm; Wt 103.2 kg
[2020-07-26 10:26] VITALS: BP 137/88
[2020-07-26] MEDS ORDERED: CEPH500C PO (11:17)
== END 2020-07-26 11:27 | disposition home or self-care (01) ==
LOC: M ED 10:25
DX: S91.331A Puncture wound without foreign body, right foot, initial encounter (principal); W45.8XXA Other foreign body or object entering through skin, initial encounter; Y92.098 Other place in other non-institutional residence as the place of occurrence of the external cause; Y93.01 Activity, walking, marching and hiking; Y99.8 Other external cause status; I10 Essential (primary) hypertension; E78.5 Hyperlipidemia, unspecified; J30.81 Allergic rhinitis due to animal (cat) (dog) hair and dander; Z79.899 Other long term (current) drug therapy

== ENCOUNTER → 2020-11-18 | Outpatient (REF) | payer OTHER ==
[~2020-11-18] MED LIST changes: +CEPH500C PO
== END ==
LOC: M LAB REF 17:54
PROVIDERS: ATTEND Physician Assistant
DX: L82.1 Other seborrheic keratosis (principal)

== ENCOUNTER → 2021-11-28 | Outpatient (REF) | payer OTHER ==
[2021-11-28 11:29] LABS: HEMATOCRIT 44.5 % (42.0-52.0); HEMOGLOBIN 15.5 g/dl (13.5-17.5); MEAN CORPUSCULAR HEMOGLOBIN 31.4 pg (27.0-33.0); MEAN CORPUSCULAR HGB CONC 34.8 g/dl (32.0-36.5); MEAN CORPUSCULAR VOLUME 90.1 fl (80.0-96.0); PLATELET COUNT, AUTOMATED 162 10^3/uL (150-450); RED BLOOD COUNT 4.94 10^6/uL (4.30-6.10); WHITE BLOOD COUNT 4.7 10^3/uL (4.0-10.0)
[2021-11-28 12:12] LABS: ALBUMIN 3.9 GM/DL (3.2-5.2); ALT/SGPT 34 U/L (12-78); BILIRUBIN,TOTAL 2.3 MG/DL (0.2-1.0); BLOOD UREA NITROGEN 21 MG/DL (7-18); CARBON DIOXIDE LEVEL 31 MEQ/L (21-32); CHLORIDE LEVEL 106 MEQ/L (98-107); CHOLESTEROL LEVEL 221 MG/DL (<200); CHOLESTEROL RISK RATIO 6.138 (<5); CREATININE FOR GFR 1.11 MG/DL (0.70-1.30); GLOMERULAR FILTRATION RATE > 60.0 (>56); GLUCOSE, FASTING 97 MG/DL (70-100); HDL CHOLESTEROL 36 MG/DL (>40); LDL CHOLESTEROL 116 MG/DL (<100); NON-HDL-C 185 MG/DL; POTASSIUM SERUM 4.3 MEQ/L (3.5-5.1); SODIUM LEVEL 141 MEQ/L (136-145); TOTAL PROTEIN 6.6 GM/DL (6.4-8.2); TRIGLYCERIDES LEVEL 343 MG/DL (<150); URIC ACID 6.3 MG/DL (3.5-7.2)
== END ==
LOC: M SFHCCLAY 08:11
PROVIDERS: ATTEND Family Medicine
DX: I10 Essential (primary) hypertension (principal); M10.9 Gout, unspecified; E78.2 Mixed hyperlipidemia

== ENCOUNTER → 2021-12-09 | Outpatient (CLI) | payer OTHER | LOC: M WHC 14:48 | PROVIDERS: ATTEND Nurse Practitioner Family | DX: M79.604 Pain in right leg (principal) ==

== ENCOUNTER → 2022-06-07 | Outpatient (REF) | payer OTHER ==
[2022-06-07 12:23] LABS: BLOOD UREA NITROGEN 21 MG/DL (9-23); CALCIUM LEVEL 8.9 MG/DL (8.5-10.1); CARBON DIOXIDE LEVEL 31 MMOL/L (20-31); CHLORIDE LEVEL 103 MMOL/L (98-107); CREATININE FOR GFR 1.15 MG/DL (0.70-1.30); GLOMERULAR FILTRATION RATE > 60.0 (>56); GLUCOSE, FASTING 166 MG/DL (60-100); POTASSIUM SERUM 4.2 MMOL/L (3.5-5.1); SODIUM LEVEL 140 MMOL/L (136-145)
[2022-06-07 12:37] LABS: URIC ACID 4.1 MG/DL (3.7-9.2)
== END ==
LOC: M SFHCCLAY 07:55
PROVIDERS: ATTEND Family Medicine
DX: I10 Essential (primary) hypertension (principal); E78.2 Mixed hyperlipidemia; M10.9 Gout, unspecified

== ENCOUNTER → 2022-09-20 | Outpatient (REF) | payer OTHER ==
[2022-09-20 14:09] LABS: APPEARANCE, URINE CLEAR (CLEAR); BACTERIA, URINE AUTO NEGATIVE (NEGATIVE); BILIRUBIN, URINE AUTO NEGATIVE (NEGATIVE); BLOOD, URINE BLOOD NEGATIVE (NEGATIVE); COLOR, URINE YELLOW (YELLOW); GLUCOSE, URINE (UA) AUTO NEGATIVE (NEGATIVE); KETONE, URINE AUTO NEGATIVE (NEGATIVE); LEUKOCYTE ESTERASE, URINE AUTO NEGATIVE (NEGATIVE); NITRITE, URINE AUTO NEGATIVE (NEGATIVE); PROTEIN, URINE AUTO NEGATIVE (NEGATIVE); RBC, URINE AUTO 0 /HPF (0-3); SPECIFIC GRAVITY URINE AUTO 1.016 (1.002-1.035); SQUAMOUS EPITHELIAL CELL UR AU 0 /HPF (0-6); UROBILINOGEN, URINE AUTO 0.2 mg/dL (0.0-2.0); WBC, URINE AUTO 1 /HPF (0-3)
[2022-09-20 16:01] LABS: GC DNA AMPLIFICATION NEGATIVE (NEGATIVE)
== END ==
LOC: M SFHCPLAZ 13:13
PROVIDERS: ATTEND Internal Medicine Hematology
DX: N34.2 Other urethritis (principal)

== ENCOUNTER → 2022-11-27 | Outpatient (REF) | payer OTHER | LOC: M SFHCDERM 14:29 | PROVIDERS: ATTEND Physician Assistant | DX: R23.8 Other skin changes (principal) ==

== ENCOUNTER → 2023-06-18 | Outpatient (CLI) | payer OTHER ==
[~2023-06-18] MED LIST changes: +LIDOCAINE 1% MDV 20ML VIAL As Ordered ONE
== END ==
LOC: M IRPRO 09:05
PROVIDERS: ATTEND Surgery
DX: R22.42 Localized swelling, mass and lump, left lower limb (principal)

== ENCOUNTER → 2023-08-01 | Outpatient (REF) | payer OTHER ==
[~2023-08-01] MED LIST changes: -LIDOCAINE 1% MDV 20ML VIAL As Ordered ONE
== END ==
LOC: M LABSMT 09:09
PROVIDERS: ATTEND Urology
DX: Z30.2 Encounter for sterilization (principal)

== ENCOUNTER → 2023-08-17 | Outpatient (REF) | payer OTHER, BC | LOC: M SFHCCLAY 10:26 | PROVIDERS: ATTEND Physician Assistant | DX: R21 Rash and other nonspecific skin eruption (principal); Z53.9 Procedure and treatment not carried out, unspecified reason ==

== ENCOUNTER → 2023-09-10 | Outpatient (REF) | payer OTHER, BC ==
[2023-09-10 12:33] LABS: BASO % 0.6 % (0.0-1.0); EOS # 0.2 10^3/uL (0.0-0.5); EOS % 2.8 % (0.0-3.0); HEMATOCRIT 48.2 % (42.0-52.0); HEMOGLOBIN 16.2 g/dl (13.5-17.5); LYMPH # 1.3 10^3/uL (1.5-5.0); LYMPH % 20.3 % (24.0-44.0); MEAN CORPUSCULAR HEMOGLOBIN 31.3 pg (27.0-33.0); MEAN CORPUSCULAR HGB CONC 33.6 g/dl (32.0-36.5); MEAN CORPUSCULAR VOLUME 93.1 fl (80.0-96.0); MONO # 0.6 10^3/uL (0.0-0.8); NEUTROPHILS # 4.3 10^3/uL (1.5-8.5); PLATELET COUNT, AUTOMATED 207 10^3/uL (150-450); RED BLOOD COUNT 5.18 10^6/uL (4.30-6.10); WHITE BLOOD COUNT 6.4 10^3/uL (4.0-10.0)
[2023-09-10 12:58] LABS: URIC ACID 4.9 MG/DL (3.7-9.2)
[2023-09-10 13:01] LABS: ALKALINE PHOSPHATASE 87 U/L (46-116); ALT/SGPT 32 U/L (7.0-40); AST/SGOT 25 U/L (<34); BILIRUBIN,TOTAL 1.5 MG/DL (0.3-1.2); BLOOD UREA NITROGEN 18 MG/DL (9-23); CALCIUM LEVEL 9.4 MG/DL (8.5-10.1); CARBON DIOXIDE LEVEL 32 MMOL/L (20-31); CHLORIDE LEVEL 104 MMOL/L (98-107); CHOLESTEROL LEVEL 259 MG/DL (<200); CREATININE FOR GFR 1.09 MG/DL (0.70-1.30); GLOMERULAR FILTRATION RATE > 60.0 (>56); GLUCOSE, FASTING 83 MG/DL (60-100); LDL CHOLESTEROL 160.8 MG/DL (<100); POTASSIUM SERUM 4.9 MMOL/L (3.5-5.1); SODIUM LEVEL 140 MMOL/L (136-145); TOTAL PROTEIN 6.9 G/DL (5.7-8.2); TRIGLYCERIDES LEVEL 306 MG/DL (<150)
== END ==
LOC: M SFHCCLAY 09:26
PROVIDERS: ATTEND Physician Assistant
DX: R07.89 Other chest pain (principal); E78.2 Mixed hyperlipidemia; M10.9 Gout, unspecified

== ENCOUNTER → 2023-09-27 | Outpatient (REF) | payer OTHER, BC ==
[2023-09-27 13:21] LABS: CPK CREATINE PHOSPHOKINASE 62 U/L (46-171)
[2023-09-27 13:22] LABS: CK-MB VALUE MASS < 1.0 NG/ML (<3.6); MB/CK RELATIVE INDEX 1.61 (< OR =4)
[2023-09-28 23:10] LABS: CYCLIC CITRULLINATED PEPTIDE 5 units (0-19)
== END ==
LOC: M SFHCCLAY 08:51
PROVIDERS: ATTEND Physician Assistant
DX: R07.89 Other chest pain (principal); M25.50 Pain in unspecified joint

== ENCOUNTER → 2023-09-27 | Outpatient (CLI) | payer OTHER, BC | LOC: M CLY 09:05 | PROVIDERS: ATTEND Physician Assistant | DX: R07.89 Other chest pain (principal) ==

== ENCOUNTER → 2023-10-23 | Outpatient (REF) | payer OTHER, BC ==
[2023-10-23 14:41] LABS: SEMEN APPEARANCE OPAQUE (OPAQUE); SEMEN VISCOSITY LIQUID (LIQUID); WBC CONCENTRATION <=1 M/ml (<=1 M/ml)
== END ==
LOC: M SMT 12:25
PROVIDERS: ATTEND Urology
DX: Z30.2 Encounter for sterilization (principal)

== ENCOUNTER → 2023-12-04 | Outpatient (REF) | payer OTHER, BC ==
[2023-12-04 18:25] LABS: Trichomonas vaginalis (AMP) NOT DETECTED (NEGATIVE)
[2023-12-04 18:48] LABS: GC DNA AMPLIFICATION NEGATIVE (NEGATIVE)
== END ==
LOC: M SFHCCLAY 11:19
PROVIDERS: ATTEND Physician Assistant
DX: R30.0 Dysuria (principal)

== ENCOUNTER → 2024-01-22 | Outpatient (REF) | payer OTHER, BC ==
[2024-01-22 12:47] LABS: BILIRUBIN,DIRECT 0.3 MG/DL (<0.4); CHOLESTEROL RISK RATIO 2.57 (<5); HDL CHOLESTEROL 44.3 MG/DL (>40); LDL CHOLESTEROL 13.9 MG/DL (<100); NON-HDL-C 69.7 MG/DL; TOTAL PROTEIN 6.7 G/DL (5.7-8.2)
== END ==
LOC: M LABDRAWC 11:05
PROVIDERS: ATTEND Internal Medicine
DX: E78.5 Hyperlipidemia, unspecified (principal)

== ENCOUNTER → 2024-12-11 | Outpatient (CLI) | payer BC ==
[~2024-12-11] MED LIST changes: +ISOVUE-370 76% 100 ML VIAL ONE
== END ==
LOC: M PLAIMG 13:00
PROVIDERS: ATTEND Otolaryngology
DX: R59.0 Localized enlarged lymph nodes (principal)
CPT/HCPCS: 70491; Q9967